=== PATIENT | male | born 1985 | race Caucasian/White ===

== ENCOUNTER 2017-03-09 00:54 | Emergency (ER) | payer OTHER ==
[2017-03-09 01:19] VITALS: BP 136/61; PULSE 97; TEMP 98.9; BMI 30.7
--- NOTE | 2017-03-09 02:01 | PDOC ---
Attending Attestation - Resident Resident Name: Jeff Levi - HPI HPI: 03/09/17 01:59 31 yo male BIBA after having a witnessed tonic clonic seizure in bed. His mother gave him a glucose gel after the seizure according to the girlfriend -pt has been IDDM since he was a child and he now has a Metronic Insulin pump 03/09/17 02:01 WNWD 31 yo male p/w after witnessed seizure HEENT+ tongue trauma neck supple lungs cta b/l cvr [id number] abd nontender ext no deformity neuro slightly combative,moving all extremities - Physicial Exam PE: 03/10/17 01:28 wnwd 31 yo male head no evidence of trauma oral ++tongue wound neck supple lungs cta b/l cvs [id number] abd soft ,nontender neuro conversant ,moving al extremities,initially sl combative - Medical Decision Making 03/09/17 02:03 labs just ordered/cbc,comp
[2017-03-09 02:09] LABS: BASOPHIL 0.2 % (0-2.0); EOSINOPHIL 1.1 % (0-4.5); MCH 32.2 pg (25.7-33.7); MCHC 34.2 g/dl (32.0-35.9); MEAN CELL VOLUME 94.1 fl (80-96); MEAN PLT VOLUME 9.2 fl (7.5-11.1); NEUTROPHILS 77.8 % (42.8-82.8); PLATELET COUNT 191 K/MM3 (134-434); RDW 13.1 % (11.9-15.9); WHITE BLOOD COUNT 8.2 K/mm3 (4.0-10.0)
[2017-03-09 02:41] LABS: ACETONE SERUM NEGATIVE (NEGATIVE)
[2017-03-09 02:43] LABS: ALBUMIN 4.1 g/dl (3.4-5.0); ALK PHOS 57 U/L (45-117); ANION GAP 8 (8-16); BILIRUBIN,TOTAL 0.4 mg/dL (0.2-1.0); CALCIUM 8.9 mg/dL (8.5-10.1); CO2 29 mmol/L (21-32); GLUCOSE,RANDOM 79 mg/dL (74-106); SGOT/AST 29 U/L (15-37); SGPT/ALT 30 U/L (12-78); TOT PROT 7.1 g/dl (6.4-8.2)
--- NOTE | 2017-03-09 02:43 | PDOC ---
History of Present Illness - General Chief Complaint: Seizure Stated Complaint: SEIZURE Time Seen by Provider: 03/09/17 01:43 History Source: Patient Exam Limitations: No Limitations - History of Present Illness Initial Comments: 03/09/17 02:37 Patient is a 31M with a history of T1DM on an insulin pump and history of prior hypoglycemic episodes is here today with a complaint of witness seizure. His girlfriend states that he started shaking in bed, causing her to call 911. Because of prior episodes of hypoglycemia, the girlfriend gave him sugar water into his mouth while he was seizing. Per family, glucose was about 150 at the scene. The patient returned to his baseline while in the ambulance per family and the patient. The patient states that he thinks he gave himself the wrong amount of insulin because he wasn't carefully checking his sugars. He denies any sort of inciting event, including nausea, vomiting, fevers, chills, increased exercise and decreased PO intake. Past History - Past Medical History Allergies/Adverse Reactions: Allergies Allergy/AdvReac Type Severity Reaction Status Date / Time No Known Allergies Allergy Verified 03/09/17 01:20 Home Medications: Ambulatory Orders Insulin (Levemir) [Levemir Vial] 5 units SQ HS #1 ml 07/25/15 Insulin (Levemir) [Levemir Vial] 20 units SQ ACBK #1 ml 07/25/15 Anemia: No Asthma: No Cancer: No Cardiac Disorders: No CVA: No COPD: No CHF: No Dementia: No Diabetes: Yes GI Disorders: No Disorders: No HTN: No Hypercholesterolemia: No Liver Disease: No Seizures: No Thyroid Disease: No - Surgical History Abdominal Surgery: No Appendectomy: No Cardiac Surgery: No Cholecystectomy: No Lung Surgery: No Neurologic Surgery: No Orthopedic Surgery: No - Immunization History Td Vaccination: Yes Immunization Up to Date: No (UNSURE) - Psycho/Social/Smoking Cessation Hx Anxiety: No Suicidal Ideation: No Smoking Status: No Smoking History: Never smoked Have you smoked in the past 12 months: No Number of Cigarettes Smoked Daily: 0 Information on smoking cessation initiated: No Hx Alcohol Use: No Drug/Substance Use Hx: No Substance Use Type: None Hx Substance Use Treatment: No Review of Systems - Review of Systems Comments:: 03/09/17 02:43 GENERAL/CONSTITUTIONAL: No fever or chills. No weakness. HEAD, EYES, EARS, NOSE AND THROAT: No change in vision. No ear pain or discharge. No sore throat. CARDIOVASCULAR: No chest pain or shortness of breath RESPIRATORY: No cough, wheezing, or hemoptysis. GASTROINTESTINAL: No nausea, vomiting, diarrhea or constipation. GENITOURINARY: No dysuria, frequency, or change in urination. MUSCULOSKELETAL: No joint or muscle swelling or pain. No neck or back pain. SKIN: No rash NEUROLOGIC: Positive for headache and seizure ENDOCRINE: No increased thirst. No abnormal weight change ALLERGIC/IMMUNOLOGIC: No hives or skin allergy. *Physical Exam - Vital Signs Last Vital Signs Temp Pulse Resp BP Pulse Ox 98.9 F 97 H 19 136/61 98 03/09/17 01:14 03/09/17 01:14 03/09/17 01:14 03/09/17 01:14 03/09/17 01:14 - Physical Exam Comments: 03/09/17 02:44 GENERAL: Awake, alert, and fully oriented, in no acute distress HEAD: No signs of trauma, normocephalic, atraumatic EYES: PERRLA, EOMI, sclera anicteric, conjunctiva clear ENT: Auricles normal inspection, hearing grossly normal, nares patent, Moist mucosa LUNGS: No distress, speaks full sentences, clear to auscultation bilaterally HEART: Regular rate and rhythm, normal S1 and S2, no murmurs, rubs or gallops, peripheral pulses normal and equal bilaterally. ABDOMEN: Soft, nontender, normoactive bowel sounds. No guarding, no rebound. No masses EXTREMITIES: Normal inspection, Normal range of motion, no edema. No clubbing or cyanosis. NEUROLOGICAL: Cranial nerves II through XII grossly intact. Normal speech, normal gait, no focal sensorimotor deficits SKIN: Warm, Dry, normal turgor, no rashes or lesions noted. ED Treatment Course - LABORATORY CBC & Chemistry Diagram: 03/09/17 01:59 03/09/17 01:59 - ADDITIONAL ORDERS Additional order review: 03/09/17 01:59 RBC 4.47 MCV 94.1 MCHC 34.2 RDW 13.1 MPV 9.2 D Neutrophils % 77.8 Lymphocytes % 12.1 D Monocytes % 8.8 Eosinophils % 1.1 Basophils % 0.2 Medical Decision Making - Medical Decision Making 03/09/17 02:44 Patient is a 31M with history of T1DM and hypoglycemic episodes here today complaining of witnessed seizure. No confirmed hypoglycemia, but patient was not checked before oral glucose was given to the seizing patient. Vital signs normal and stable. Mental status normal. Getting labs to evaluate. 03/09/17 02:48 CBC, CMP normal. Glucose 79. Will discharge home. *DC/Admit/Observation/Transfer Diagnosis at time of Disposition: Hypoglycemia - Discharge Dispostion Disposition: HOME Condition at time of disposition: Good Admit: No - Patient Instructions Printed Discharge Instructions: DI for Hypoglycemia - Attestations Physician Attestion: 03/09/17 02:49 I, Dr. Jeff Levi, attest that this document has been prepared under my direction and personally reviewed by me in its entirety. I further attest, that it accurately reflects all work, treatment, procedures and medical decision -making performed by me.
== END 2017-03-09 02:57 | disposition home or self-care (01) ==
LOC: SUPCPDRO 00:54 → JER 00:54
DX: E10.649 Type 1 diabetes mellitus with hypoglycemia without coma (principal); Z79.4 Long term (current) use of insulin; Z96.41 Presence of insulin pump (external) (internal)
CPT/HCPCS: 36415; 80053; 82009; 85025; 99281-25